=== PATIENT | female | born 1990 | race African-American/Black ===

== ENCOUNTER 2019-08-01 11:10 | Emergency (ER) | payer OTHER, SELFPAY ==
[2019-08-01 11:23] VITALS: BP 120/78; PULSE 95; RESP 16; TEMP 36.2; O2SAT 100
--- NOTE | 2019-08-01 12:04 | ED.SKABFB ---
HPI - Skin/Abscess/Foreign Bdy General Chief complaint: Skin/Abscess/Foreign Body Stated complaint: Rash Time Seen by Provider: 08/01/19 12:04 Source: patient and RN notes reviewed Mode of arrival: ambulatory Limitations: no limitations History of Present Illness HPI narrative: 28-year-old female presents with concern for 3-week history of bumpy, occasionally pruritic, red rash around her mouth, cheeks, nose, eyes. Denies any new face creams, skin care products, foods, medicines. Denies any history of similar rash in the past. Reports [id number]-[id number] remedies not effective. She denies any lip swelling, tongue swelling, tongue itching, difficulty breathing, nausea, vomiting, diarrhea, fever. MD complaint: rash Related Data Allergies Allergy/AdvReac Type Severity Reaction Status Date / Time Sulfa (Sulfonamide Allergy Unknown Verified 04/23/19 18:42 Antibiotics) Review of Systems Review of Systems: Narrative: CONSTITUTIONAL: Denies malaise, chills, sweats, or fever. EYES: Denies visual changes, redness, or discharge. ENT: Denies rhinorrhea, congestion, sinus pain, otalgia or sore throat. CARDIOVASCULAR: Denies chest pain, palpitations, or edema. RESPIRATORY: Denies cough or dyspnea. GASTROINTESTINAL: Denies abdominal pain, nausea, vomiting, diarrhea, SKIN: Reports red, itchy rash to face for 3 weeks MUSCULOSKELETAL: Denies myalgia. NEUROLOGIC: Denies headache. All systems reviewed & are unremarkable except as noted in HPI and below PMFSH Social History Social History Gender identity (if verbalized by the patient): Female Comments At time of signature, agree with nursing past medical, surgical, social and family history. There is no relevant family history pertinent to the presenting complaint Exam Narrative: Exam Narrative: GENERAL: Well-appearing, well-nourished, and in no acute distress. HEAD: Normocephalic, atraumatic. EYES: PERRLA, conjunctivae clear, sclera clear ENT: Nares clear, turbinates pink, no rhinorrhea or epistaxis. Mucous membranes moist. Oropharynx without edema, erythema or lesions. Tonsils not enlarged and without exudate. NECK: Supple. No lymphadenopathy. CHEST: No respiratory distress. Clear to auscultation. No bony deformities, no asymmetry. Speaks in full sentences. HEART: Regular rate and rhythm. No murmur heard. SKIN: Warm, dry patches of erythema, papular, pustular rash to cheeks, chin, nose NEURO: Alert and oriented x3. PSYCH: Normal mood and affect Course Course Emergency Course: Patient is aware of diagnosis, understands and agrees to treatment plan. Anticipatory guidance given. Patient agrees to follow-up as directed and is aware of reasons to seek care at the emergency department. Portions of this record may have been created with voice recognition software Vital Signs Vital signs: Vital Signs Temperature 97.2 F L 08/01/19 11:23 Pulse Rate 95 08/01/19 11:23 Respiratory Rate 16 08/01/19 11:23 Blood Pressure 120/78 08/01/19 11:23 Pulse Oximetry 100 08/01/19 11:23 Temperature 97.2 F L 08/01/19 11:23 Pulse Rate 95 08/01/19 11:23 Respiratory Rate 16 08/01/19 11:23 Blood Pressure 120/78 08/01/19 11:23 Pulse Oximetry 100 08/01/19 11:23 Reviewed. MDM - Skin/Abscess/Foreign Bdy MDM Narrative Medical decision making narrative: Does not appear at this time to be erythema multiforme, bullous, SJS, TEN; no evidence at this time to suggest RMSF, endocarditis or Lyme disease; patient looks well, nontoxic and is tolerating oral intake; no neurologic signs or symptoms; no headache, photophobia or neck pain; afebrile; appropriate for initial outpatient treatment; discussed the importance of follow-up, patient agrees; question, viral exanthema, contact dermatitis, allergic dermatitis, eczema, urticaria, perioral dermatitis. No soft palate or uvula edema, no tongue, lip edema or other mucosal involvement, no respiratory compromise, no stridor, no wheezing, no w
== END 2019-08-01 12:28 | disposition home or self-care (01) ==
PROVIDERS: Emergency Provider Nurse Practitioner
DX: L71.0 Perioral dermatitis (principal)
CPT/HCPCS: 99213; G0463

== ENCOUNTER 2021-09-18 16:02 | Emergency (ER) | payer OTHER, SELFPAY ==
[2021-09-18 16:19] VITALS: BP 119/77; PULSE 84; RESP 20; TEMP 36.2; O2SAT 100
--- NOTE | 2021-09-18 16:20 | ED.BACK ---
HPI - Back Pain/Injury General Chief Complaint: Back Pain/Injury Stated Complaint: BACK PAIN Time Seen by Provider: 09/18/21 16:20 Source: patient and RN notes reviewed History of Present Illness HPI Narrative: Patient is a 31-year-old female who presents the urgent care with complaints of low back pain. Patient states that she went to lift her dog 2 days ago and had immediate sudden back pain. Patient states she did it again yesterday and the pain seems much worse today. Patient states she does have a history of sciatica which typically relieves with rest and ibuprofen. Patient states that she has tried ibuprofen without any relief. Denies of any loss of bowel or bladder. States that pain is exacerbated with sitting. No other acute complaints. No acute distress noted. Patient aware of the plan of care. Some parts of this dictation were generated by voice recognition software and may contain typographical and/or grammatical inaccuracies. Related Data Home Medications Medication Instructions Recorded Confirmed norgestimate 0.25 mg-ethinyl 1 tablet PO DAILY 09/18/21 09/18/21 estradiol 35 mcg tablet (Estarylla) Allergies Allergy/AdvReac Type Severity Reaction Status Date / Time Sulfa (Sulfonamide Allergy Unknown Verified 09/18/21 16:20 Antibiotics) Review of Systems Review of Systems: CONSTITUTIONAL: Denies fever, chills, or sweats. EYES: Denies visual changes, redness, or discharge. ENT: Denies rhinorrhea, congestion, sore throat, or otalgia. CARDIOVASCULAR: Denies chest pain, palpitations, or edema. RESPIRATORY: Denies cough or dyspnea. GASTROINTESTINAL: Denies abdominal pain, nausea, vomiting, or diarrhea. GENITOURINARY: Denies dysuria or hematuria. SKIN: Denies rash or itching. MUSCULOSKELETAL: Reports of diffuse low back pain radiating to the groin and right leg NEUROLOGIC: Denies headache, numbness, or weakness. All other systems reviewed are negative, except as documented in HPI. [facility] Social History Social History Smoking status: Never smoker Alcohol intake: unknown Substance use: never Substance use type: does not use Gender identity (if verbalized by the patient): Female Spiritual care concerns: No Comments At the time of my signature, I reviewed and agree with the nursing past medical, surgical, social, and family history. There is no relevant family history pertinent to the patient complaint. Exam Narrative: GENERAL: This is a well-nourished, well-developed patient, in no apparent distress. HEAD: normocephalic, atraumatic. EYES: PERRL. Sclera clear/white. Vision is grossly intact. EARS: External ears normal NOSE: External nose normal with no obvious nasal discharge, nares without redness, no rhinorrhea. THROAT: Mucous membranes moist NECK: Neck supple CARDIOVASCULAR: Regular rate and rhythm without murmurs, gallops, or rubs. RESPIRATORY: Clear to auscultation. Breath sounds equal bilaterally. No wheezes, rales, or rhonchi. SKIN: warm, intact with no suspicious lesions or rash, good texture and turgor. NEURO: awake, alert, and oriented to person, place and time. There were no obvious focal neurologic abnormalities. EXTREMITIES: No clubbing, cyanosis, or edema. BACK: Midline lumbar tenderness with positive right SLE and right piriformis tenderness Course Course Level of Care: Express Care Visit Vital Signs Vital signs: Vital Signs Temperature 97.1 F L 09/18/21 16:19 Pulse Rate 84 09/18/21 16:19 Respiratory Rate 20 09/18/21 16:19 Blood Pressure 119/77 09/18/21 16:19 Pulse Oximetry 100 09/18/21 16:19 Temperature 97.1 F L 09/18/21 16:21 Pulse Rate 84 09/18/21 16:21 Respiratory Rate 20 09/18/21 16:21 Blood Pressure 119/77 09/18/21 16:21 Pulse Oximetry 100 09/18/21 16:21 Reviewed MDM - Back Pain/Injury MDM Narrative Medical decision making narrative: Advised patient to complete
[2021-09-18 16:21] VITALS: BP 119/77; PULSE 84; RESP 20; TEMP 36.2; O2SAT 100
== END 2021-09-18 16:35 | disposition home or self-care (01) ==
PROVIDERS: Emergency Provider Nurse Practitioner Family
DX: S39.012A Strain of muscle, fascia and tendon of lower back, initial encounter (principal); X50.0XXA Overexertion from strenuous movement or load, initial encounter; M54.31 Sciatica, right side
CPT/HCPCS: 99213; G0463

== ENCOUNTER 2021-09-29 08:17 | Day surgery (SDC) | payer OTHER, SELFPAY ==
[2021-09-13 10:08] VITALS: BMI 33.7
--- NOTE | 2021-09-13 10:09 | SUR.PREOP ---
PRE-OPERATIVE [address] [address] 1. Report to the Surgery Center Waiting Room, the entrance is the first door on the right after passing through the automatic sliding doors, at time ___0900_on date__09/29/2021__. OR Time:_1030___ . When you arrive, you and your visitor will be screened for Covid prior to entry. A mask is required within the surgery center. 2. Patients may have clear liquids (water, carbonated beverages, clear teas, apple juice) until 3 hours prior to surgery with a maximum of 20 ounces. ? No food from midnight until time of surgery. ? Infants may have breast milk until 4 hours before surgery, infant formula 6 hours prior to surgery. ? Children will be allowed to drink immediately following surgery. If applicable, please bring a bottle or sippy cup to assist with drinking. Juice, water, soda, and popsicles are readily available. For infants on formula, please bring formula the day of surgery. Pacifiers are allowed. 3. Take the following medications with a SIP of water the morning of surgery: 1. n/a 2. 3. Medications to discontinue per physician order: 1. n/a date to discontinue: 4. No make-up, nail czech, hairspray, perfume, deodorant, or body powder the day of surgery. No jewelry (including any body piercings) or valuables the day of surgery. Please take a shower or bath the night before, or the morning of, surgery with an antibacterial soap. Wear comfortable, loose fitting clothing. Children are encouraged to wear pajamas. ? Jewelry must be removed prior to entering the operating room. Rings and piercings that are not removed will be cut off. The center will not accept responsibility for valuables. Please leave all valuables, including medications, at home the day of surgery. 5. When going home after surgery, a licensed batch mixing truck driver must drive you home. NO public transportation without another adult. We recommend someone to stay with you, no alcoholic beverages, driving or important decision making for 24 hours after surgery. For pediatric surgeries, we recommend two adults to accompany a child home. (Only one will be allowed into the building with the patient) 6. 1 visitor (over age of 18) will be allowed. The visitor will drop patient off and remain in car until patient is prepared for surgery. Visitor will be called to join patient. Exceptions: Adult of a pediatric patient, patients with intellectual and/or developmental disability or cognitive impairments can accompany patient through-out visit. Visitors will need to be screened prior to coming into the center. Screening will include Covid symptom question checking. Visitor must wear a mask. Visitor will remain in patient?s room for duration of stay. 7. If you or anyone in your household have experienced Covid symptoms in the past week, please notify your surgeon or surgery center at phone number below for possible testing. 8. Follow any additional instructions given by your physician. Telephone instructions given to: patientRaúl Aguirre and asked if any additional questions and then verbalized understanding. Patient advised to call surgeon office or the surgery center at [phone] if any additional questions.
[2021-09-29] VITALS (8 sets, daily range): BP systolic 107–136; BP diastolic 71–83; PULSE 63–88; RESP 10–16; TEMP 36.6; O2SAT 91–100; BMI 34.3
[2021-09-29] MEDS: LACTATED RINGERS 1,000 ML 30 ML IV CONT ×2 (09:03→13:09)
--- NOTE | 2021-09-29 09:03 | SUR.PREOP ---
IV LR 500CC FLUID BOLUS STARTED PER ORDER
--- NOTE | 2021-09-29 09:25 | WPDHPUPDATE1 ---
History and Physical Update Update Date/Time: 09/29/21 09:25 History and Physical has been reviewed, including an updated exam of the patient. There are NO changes in the patient's condition. Risks, benefits, and alternatives have been discussed and questions answered. Patient agrees to proceed with procedure.
--- NOTE | 2021-09-29 09:41 | SUR.PREOP ---
FEMALE RN IN ROOM WITH DR OLIVO WHILE MARKING
--- NOTE | 2021-09-29 09:41 | WPDANESEPPF ---
Anes - Initial Pre Proc Eval Procedure: Operation Date: 09/29/21 10:30 Proposed Procedures p Bilateral Breast Augmentation Mammoplasty - Hilario Gutierrez MD s Bilateral Breast Mastopexy - Hilario Gutierrez MD Date/Time: 09/29/21 09:41 Surgeon: Hilario Gutierrez MD Pre Op Diagnosis: Micromastia and Breast Ptosis Patient Data Age: 31 Gender: F Height: 1.6 m Weight: 88 kg Allergies Allergy/AdvReac Type Severity Reaction Status Date / Time Sulfa (Sulfonamide Allergy Unknown Verified 09/29/21 08:29 Antibiotics) Home Medications Medication Instructions Recorded Confirmed Type cyclobenzaprine 5 mg tablet 5 mg PO TID PRN muscle spasm #20 09/18/21 Rx tabs ibuprofen 800 mg tablet 800 mg PO TID PRN pain #60 tabs 09/18/21 Rx norgestimate 0.25 mg-ethinyl 1 tablet PO DAILY 09/18/21 09/29/21 History estradiol 35 mcg tablet (Estarylla) Patient hx anesthesia problems: none Family hx anesthesia problems: none Results Review: All pre-operative results and documents have been reviewed as part of the pre-operative evaluation. [facility] Social History Social History Smoking status: Never smoker Alcohol intake: unknown Substance use: never Substance use type: does not use Living arrangements: with family Gender identity (if verbalized by the patient): Female Spiritual care concerns: No Anes - Eval Final PreProcedure Day of Procedure 09/29/21 09:41 Patient weight: overweight Heart: regular rate and rhythm Lungs: clear to auscultation Airway: Mallampati scale class II Neurological: alert and oriented Last oral intake: >/= 8 hours ASA classification: II Emergent: no Anesthetic plan: proceed Anesthesia type and monitoring: general LMA and standard monitoring Results Review: All pre-operative results and documents have been reviewed as part of the pre-operative evaluation. Informed Consent: The patient's anesthetic plan and its attendant risks and benefits were discussed with the patient/family/POA. Questions were solicited and answers provided to the satisfaction of the patient/family/POA.
--- NOTE | 2021-09-29 09:43 | P.OP_ITS ---
Procedure Note - Detailed Date of Procedure 09/29/21 Pre-op Diagnosis Micromastia and Breast Ptosis Post-op Diagnosis Same Procedure Performed Augmentation Mastopexy Surgeon Hilario Gutierrez MD Anesthesia General Findings Inverted T Superior Pedicle Bilateral Bina Real SoftTouch 440cc implants Right - REF# [id number] SN [id number] Left - REF# [id number] SN [id number] Description of Procedure She is here today for bilateral breast augmentation mastopexy. Previously and again today the risks, benefits, alternatives were discussed in extensive detail. I wanted her to be very realistic about the risks involved as well as expectations. We discussed aftercare and what to monitor for. Made sure answered all of her questions to her satisfaction today and consent was obtained. Marked in the preoperative holding area with their verification. The patient was taken to the operating room placed supine on the operating table. Anesthesia was provided by anesthesiology. A surgical time-out was taken. We cleansed the skin and 1% lidocaine and 0.25% Marcaine with epinephrine was used anesthetize as a field block. She was prepped and draped in a standard sterile fashion. Tegaderm nipple [place] were placed. A 15 blade used to make an incision just s uperior to the inframammary fold leaving a cusp of de-epithelized tissue at the t junction. Dissection was continued until the chest wall as identified. I incised the pectoralis major along its inferior border and completely released the inferior border leaving the medial border intact. I created a subpectoral pocket in the appropriate dimensions based on our preoperative planning for the implant. I then copiously irrigated with saline solution and verified a strict hemostasis. Next the use a triple antibiotic and Betadine containing solution to irrigate the pocket. I washed my gloves with the triple antibiotic and Betadine solution. We washed the implant immediately upon opening it with this solution and only opened it when we needed it. I used implant funnel and no-touch technique. The implant was introduced into the pocket using the funnel. Having verified positioning of the implant this was closed using 2-0 Vicryl. I tailor tacked the breast into position. Placed her in a sitting position. Verified the nipple-areolar location based on preoperative planning as well as intraoperative observations and measurements in full agreement. She was placed supine. I de-epithelialized the pedicle. I then removed the inferior central portion of the breast need making sure the implant was well protected. I elevated medial and lateral tissue flaps as well for planned closure. I closed along the IMF with 2-0 Stratafix. Along the vertical with 2-0 PDS. I closed around the Robi with 3-0 strata fix. 3-0 Monocryl along the vertical. 3-0 Stratafix along the IMF. I finally closed everything with running subcuticular 4-0 Monocryl and tissue glue. Fluffs and surgical bra were placed. Estimated Blood Loss 50 Drains No Packing No Pathology None sent Complications No immediate complications Condition Stable Disposition PACU
--- NOTE | 2021-09-29 09:49 | SUR.PREOP ---
BERNARDO OLIVO/CARYL RN, 1GM TRANEXAMIC ACID IV TRANSPORT TANK TECHNICIAN TO OR
[2021-09-29] MEDS: LIDO 1%/EPINEPHRINE 1:100,000 20 ML VIAL 40 ML INFILTRATE (10:36)
[2021-09-29] MEDS: BUPIVACAINE HCL 0.25% 50 ML VIAL 40 ML INFILTRATE (10:36)
[2021-09-29] MEDS: ceFAZolin SODIUM 1 GM VIAL 2 GM IRRIGATION (10:37)
[2021-09-29] MEDS: POVIDONE-IODINE 10% SOLUTION 118 ML BOTTLE 100 ML TOPICAL (10:38)
[2021-09-29] MEDS: HYDROmorphone HCL INJ (*CRX) 1 MG/ML SYR 0.5 MG IV PUSH ×2 (12:25→12:37)
[2021-09-29] MEDS: ONDANSETRON INJ 4 MG/2 ML VIAL IV PUSH (13:08)
[2021-09-29] MEDS: SCOPOLAMINE 1.5 MG PATCH TRANSDERM (13:35)
--- NOTE | 2021-09-29 13:35 | WPDANESPN ---
Anes - Prog Note Post-Op Date/Time: 09/29/21 13:35 Cardiovascular status: normal Respiratory status: normal Airway patency: baseline Mental status: baseline Post-Op hydration status: normal Vital Signs: Last Vital Signs Temp 36.6 C 09/29/21 12:12 Pulse 63 09/29/21 13:06 Resp 16 09/29/21 13:06 BP 110/71 09/29/21 13:06 Pulse Ox 99 09/29/21 13:06 O2 Del Method Room Air 09/29/21 13:06 O2 Flow Rate 6 09/29/21 12:42 Pain Score (VAS): 4 I/O: Intake & Output 09/28/21 09/29/21 09/29/21 23:59 07:59 15:59 Intake Total 500 Balance 500 Patient Feedback: Patient satisfied with anesthetic care.
[2021-09-29] MEDS: diphenhydrAMINE HCl INJ 50 MG/ML VIAL 25 MG IV PUSH (13:49)
--- NOTE | 2021-09-29 14:47 | SUR.PHASEII ---
1410 Pt states nausea is much better and declined need for oral pain med. Pt states is ready for discharge home.
== END 2021-09-29 14:30 | disposition home or self-care (01) ==
PROVIDERS: Visit Provider Surgery Plastic and Reconstructive Surgery
PROC: (CPT 19325; principal; 2021-09-29 10:30)
PROC: (CPT 19316; 2021-09-29 10:30)
DX: N64.81 Ptosis of breast (principal)
CPT/HCPCS: 19325

== ENCOUNTER 2022-07-23 10:14 | Outpatient (CLI) | payer OTHER, SELFPAY ==
[2022-07-23 12:36] LABS: Hematocrit 41.6 % (37.0-47.0); Hemoglobin 13.6 g/dL (12.0-15.0); Mean Corpuscular HGB Conc 32.7 g/dl (32-36); Mean Corpuscular Hemoglobin 30.2 pg (26-34); Mean Corpuscular Volume 92.2 fl (80-100); Mean Platelet Volume 9.6 fl (7.4-10.4); Platelet Count Result 357 k/mm3 (150-375); Red Blood Count 4.51 M/mm3 (4.2-5.4); Red Cell Distribution Width 12.3 % (11.5-14.5); White Blood Count 8.3 K/mm3 (4.5-10.0)
[2022-07-23 12:43] LABS: Alanine Aminotransferase 20 U/L (6-35); Albumin Level 4.2 g/dL (3.5-5.1); Alkaline Phosphatase 63 U/L (38-126); Anion Gap 7 mmol/L (8-16); Aspartate Amino Transferase 29 U/L (14-36); Bilirubin,Total 0.4 mg/dL (0.2-1.3); Blood Urea Nitrogen 14 mg/dL (7-17); Carbon Dioxide 28 mmol/L (22-30); Chloride 103 mmol/L (98-107); Cholesterol 158 mg/dL (0-200); Estimated Glomerular Filt Rate > 60; Glucose 89 mg/dL (65-110); HDL Direct 48 mg/dL; Potassium 3.9 mmol/L (3.4-5.0); Sodium 138 mmol/L (137-145); Triglycerides 170 mg/dL (<150)
[2022-07-23 12:53] LABS: LDL Cholesterol Direct 78 mg/dL
== END 2022-07-23 10:15 | disposition home or self-care (01) ==
LOC: ANHGOSHLAB 10:14
PROVIDERS: PCP Family Medicine; Visit Provider Family Medicine
DX: F41.9 Anxiety disorder, unspecified (principal); E66.9 Obesity, unspecified; Z79.899 Other long term (current) drug therapy
CPT/HCPCS: 36415; 80053; 80061; 84443; 85027

== ENCOUNTER 2023-07-05 09:00 | Outpatient (CLI) | payer OTHER, SELFPAY ==
[2023-07-05 14:32] LABS: Alanine Aminotransferase 20 U/L (6-35); Albumin Level 3.9 g/dL (3.5-5.1); Alkaline Phosphatase 61 U/L (38-126); Anion Gap 2 mmol/L (8-16); Aspartate Amino Transferase 54 U/L (14-36); Bilirubin,Total 0.3 mg/dL (0.2-1.3); Blood Urea Nitrogen 9 mg/dL (7-17); Calcium 9.2 mg/dL (8.4-10.2); Carbon Dioxide 28 mmol/L (22-30); Chloride 108 mmol/L (98-107); Cholesterol 163 mg/dL (0-200); Estimated Glomerular Filt Rate > 60; Glucose 81 mg/dL (65-110); HDL Direct 52 mg/dL; Potassium 3.9 mmol/L (3.4-5.0); Sodium 138 mmol/L (137-145); Triglycerides 138 mg/dL (<150)
[2023-07-05 14:43] LABS: LDL Cholesterol Direct 89 mg/dL
[2023-07-05 15:03] LABS: Hematocrit 41.1 % (37.0-47.0); Hemoglobin 12.8 g/dL (12.0-15.0); Mean Corpuscular HGB Conc 31.1 g/dl (32-36); Mean Corpuscular Hemoglobin 28.8 pg (26-34); Mean Corpuscular Volume 92.6 fl (80-100); Mean Platelet Volume 10.1 fl (7.4-10.4); Platelet Count Result 334 k/mm3 (150-375); Red Blood Count 4.44 M/mm3 (4.2-5.4); Red Cell Distribution Width 12.5 % (11.5-14.5); White Blood Count 5.6 K/mm3 (4.5-10.0)
== END 2023-07-05 09:01 | disposition home or self-care (01) ==
LOC: ANHGOSHLAB 09:01
PROVIDERS: PCP Family Medicine; Visit Provider Family Medicine
DX: E78.1 Pure hyperglyceridemia (principal); E66.9 Obesity, unspecified; Z79.899 Other long term (current) drug therapy
CPT/HCPCS: 36415; 80053; 80061; 84443; 85027

== ENCOUNTER 2024-06-25 06:45 | Outpatient (CLI) | payer OTHER, SELFPAY ==
--- OUTSIDE RECORDS SUMMARY | 2024-06-25 06:48 | XMS_ITS | Clinical Summary ---
Author Organization [facility] Address [address] [place] [address] Care Team Providers Care Processing Technologist Name Role Phone Unavailable Primary Care Provider Unavailabl e Source Comments [facility],non-owned Affiliates and Associated Physician Practices is amultiple site organization consisting of ambulatory clinics and hospital sitesin [place], [place], [place] and [place]. This disclosure is being madepursuant to the Care Everywhere program and may not contain all information available regarding this patient. Last updated 18.[facility] Allergies Active Allergy Reactions Criticality Noted Date Comments Sulfa Drugs Other 12/09/2018 Unknown reaction as a child Medications Be aware that medications may not be up to date on this document. Always verify current medications with the patient. No known medications Social History Tobacco Use Types Packs/Day Years Used Date Smoking Tobacco: Never Assessed Sex and Gender Information Value Date Recorded Sex Assigned at Not on file Gender Identity Not on file Sexual Orientation Not on file Plan of Treatment Health Maintenance Due Date Last Done Comments PAP SMEAR 1991 HIV SCREENING 08/18/2006 HEPATITIS C SCREENING 08/14/2009 DTAP/TDAP/TD VACCINES (1 - Tdap) 08/18/2010 HEPATITIS B VACCINE (1 of 3 - 19+ 3-dose series) 08/18/2010 COVID-19 VACCINE ( - 2023-2 5 season) 2023 INFLUENZA VACCINE (#1) 2023 DEPRESSION SCREENING 04/22/2024 ZOSTER VACCINE (1 of 2) 08/18/2041 HIB VACCINE Aged Out No longer eligi ble based on patient's age to complete this topic HPV VACCINE Aged Out No longer eligi ble based on patient's age to complete this topic MENINGOCOCCAL (Group B) VACCINE Aged Out No longer eligible based on patient's age to complete this topic MENINGOCOCCAL VACCINE Aged Out No ana liane eligible based on patient's age to complete this topic PNEUMOCOCCAL VACCINE Aged Out No long er eligible based on patient's age to complete this topic
--- OUTSIDE RECORDS SUMMARY | 2024-06-25 06:48 | XMS_ITS | Patient Health Summary ---
Author Organization [facility] Address [address] [place] [address] Care Team Providers Care Edi Architect Name Role Phone Unavailable Primary Care Provider Unavailabl e Note from [facility] [place]note 2],non-owned Affiliates and Associated Physician Practices is amultiple site organization consisting of ambulatory clinics and hospital sitesin [place], [place], [place] and [place]. This disclosure is being madepursuant to the Care Everywhere program and may not contain all information available regarding this patient. Last updated 18.[facility] Allergies * Sulfa Drugs(Other) Medications Be aware that medications may not be up to date on this document. Always verify current medications with the patient. 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
--- OUTSIDE RECORDS SUMMARY | 2024-06-25 06:48 | XMS_ITS | Referral Summary ---
Author Organization [facility] Address [address] [place] [address] Care Team Providers Care Particle Board Supervisor Name Role Phone Unavailable Primary Care Provider Unavailabl e Source Comments [facility],non-owned Affiliates and Associated Physician Practices is amultiple site organization consisting of ambulatory clinics and hospital sitesin [place], [place], [place] and [place]. This disclosure is being madepursuant to the Care Everywhere program and may not contain all information available regarding this patient. Last updated 18.[facility] Allergies Active Allergy Reactions Criticality Noted Date [...] Orientation Not on file Plan of Treatment Not on file Administered Medications
[2024-06-25 07:09] LABS: Hematocrit 36.4 % (37.0-47.0); Hemoglobin 12.1 g/dL (12.0-15.0); Mean Corpuscular HGB Conc 33.2 g/dl (32-36); Mean Corpuscular Hemoglobin 29.6 pg (26-34); Mean Platelet Volume 9.3 fl (7.4-10.4); Platelet Count Result 273 k/mm3 (150-375); Red Blood Count 4.09 M/mm3 (4.2-5.4); Red Cell Distribution Width 12.1 % (11.5-14.5); White Blood Count 5.6 K/mm3 (4.5-10.0)
[2024-06-25 07:21] LABS: Alanine Aminotransferase 21 U/L (6-35); Albumin Level 4.2 g/dL (3.5-5.1); Alkaline Phosphatase 51 U/L (38-126); Anion Gap 12 mmol/L (4-12); Aspartate Amino Transferase 27 U/L (14-36); Bilirubin,Total 0.4 mg/dL (0.2-1.3); Blood Urea Nitrogen 15 mg/dL (7-17); Calcium 9.2 mg/dL (8.4-10.2); Carbon Dioxide 25 mmol/L (22-30); Chloride 101 mmol/L (98-107); Cholesterol 156 mg/dL (0-200); Estimated Glomerular Filt Rate > 60; Glucose 77 mg/dL (65-110); HDL Direct 68 mg/dL; Potassium 4.2 mmol/L (3.4-5.0); Sodium 138 mmol/L (137-145); Triglycerides 67 mg/dL (<150)
[2024-06-25 07:32] LABS: LDL Cholesterol Direct 64 mg/dL
== END 2024-06-25 06:46 | disposition home or self-care (01) ==
LOC: ANHLAB 06:46
PROVIDERS: PCP Family Medicine; Visit Provider Family Medicine
DX: G47.00 Insomnia, unspecified (principal); E78.1 Pure hyperglyceridemia; E66.3 Overweight; Z68.26 Body mass index [BMI] 26.0-26.9, adult; Z79.899 Other long term (current) drug therapy
CPT/HCPCS: 36415; 80053; 80061; 84443; 85027

== ENCOUNTER 2024-09-02 07:26 | Outpatient (CLI) | payer OTHER, SELFPAY ==
--- OUTSIDE RECORDS SUMMARY | 2024-09-02 07:30 | XMS_ITS | Clinical Summary ---
Author Organization [facility] Address [address] [place] [address] Care Team Providers Care Auxiliary Equipment Tender Name Role Phone Unavailable Primary Care Provider Unavailabl e Source Comments [facility],non-owned Affiliates and Associated Physician Practices is amultiple site organization consisting of ambulatory clinics and hospital sitesin [place], [place], [place] and [place]. This disclosure is being madepursuant to the Care Everywhere program and may not contain all information available regarding this patient. Last updated 18.[facility] Allergies Active Allergy Reactions Criticality Noted Date Comments Sulfa Drugs Other 12/09/2018 Unknown reaction as a child Medications * Be aware that medications may not be up to date on this document. Alwaysverify current medications with the patient. No known medications Social History Tobacco Use Types Packs/Day Years Used Date Smoking Tobacco: Never Assessed Comments Unknown Sex and Gender Information Value Date Recorded Sex Assigned at Not on file Legal Sex Female 3:29 PM CDT Gender Identity Not on file Sexual Orientation Not on file Plan of Treatment Health Maintenance Due Date Last Done Comments HIV SCREENING 08/18/2006 HEPATITIS C SCREENING 08/14/2009 DTAP/TDAP/TD VACCINES (1 - Tdap) 08/18/2010 HEPATITIS B VACCINE (1 of 3 - 19+ 3-dose series) 08/18/2010 COVID-19 VACCINE ( - 2023-2 5 season) 2023 DEPRESSION SCREENING 04/22/2024 INFLUENZA VACCINE (Season Ended) 2024 ZOSTER VACCINE (1 of 2) 08/18/2041 HIB VACCINE Aged Out No longer eligi ble based on patient's age to complete this topic HPV VACCINE Aged Out No longer eligi ble based on patient's age to complete this topic MENINGOCOCCAL (Group B) VACC INE SHARED DECISION-MAKING Aged Out No longer eligibl e based on patient's age to complete this topic MENINGOCOCCAL GROUPS A/C/Y/W VACCINE Aged Out No longer eligible b ased on patient's age to complete this topic PNEUMOCOCCAL VACCINE Aged Out No long er eligible based on patient's age to complete this topic
[2024-09-02 08:51] LABS: Free T4 Free Thyroxine 1.01 ng/dL (0.78-2.19)
== END 2024-09-02 07:27 | disposition home or self-care (01) ==
LOC: ANHLAB 07:27
PROVIDERS: PCP Family Medicine; Visit Provider Family Medicine
DX: R79.89 Other specified abnormal findings of blood chemistry (principal)
CPT/HCPCS: 36415; 84439; 84443